=== PATIENT | female | born 1985 | race Caucasian/White ===

== ENCOUNTER → 2017-09-25 | Outpatient (CLI) | payer OTHER ==
[~2017-09-25] MED LIST: BENZONATATE100 MG PO; DEXILANT60 MG PO; HIGH POTENCY M1 EAC1 PO; MONTELUKAST SOD10 MG PO; MYTAB GAS80 MG PO; PROMETHAZINE HC25 M1 PO; PROTONIX40 MG PO; PROZAC10 MG PO; TOPAMAX100 MG PO; TYLENOL WITH C1 EACH PO; ZITHROMAX250 MG PO
[2017-09-25 09:13] LABS: INTER. NORMALIZED RATIO 1.1
[2017-09-25 09:15] LABS: PTT 27.9 SEC (25-37)
[2017-09-25 09:27] LABS: HEMATOCRIT 43.8 % (36.0-46.0); HEMOGLOBIN 13.9 G/DL (11.9-15.5); MCHC 31.7 G/DL (30.0-36.0); MCV 91.3 FL (83-99); PLATELET COUNT 200 K/uL (156-360); RBC DIS.WIDTH-CV 13.6 % (11.8-14.6); RBC DIS.WIDTH-SD 45.2 % (39-53); WHITE BLOOD COUNT 9.4 K/uL (4.1-10.2)
== END | disposition home or self-care (01) ==
LOC: OPR 09-11 07:45 → EDSTATUS 09:30
PROVIDERS: Obstetrics & Gynecology Gynecologic Oncology
DX: N70.11 Chronic salpingitis (principal); N83.8 Other noninflammatory disorders of ovary, fallopian tube and broad ligament; N83.202 Unspecified ovarian cyst, left side
CPT/HCPCS: 77012; 85027; 85610; 85730; 88160; J2250; J3010